=== PATIENT | male | born 1985 | race Caucasian/White ===

== ENCOUNTER → 2021-01-24 | Outpatient (CLI) | payer OTHER ==
--- NOTE | 2021-01-24 11:49 | KCIC ---
Site ID: [id number] EXAMINATION: XR CHEST 2V. HISTORY: 35 years Male Reason: SOA on exertion. COMPARISON: None. Findings: The lungs are clear. The heart size is normal. There is no effusion or pneumothorax. The mediastinum and darin appear unremarkable. Impression: Unremarkable study. Electronically signed by: Benito Marcus MD (01/24/2021 11:47 AM) [id number]
--- NOTE | 2021-01-24 14:08 | KCIC ---
EXAM: AP, lateral and lumbosacral spot views with bilateral oblique views of the lumbar spine DATE: 01/24/2021 10:02 AM INDICATION: Low back pain COMPARISON: No Prior FINDINGS: 5 nonrib-bearing lumbar type to bodies. Vertebral body heights are preserved. Mild facet degenerative changes. No spondylolisthesis. No acute fracture. On the oblique views no definite pars defects are seen. IMPRESSION: No acute fracture or subluxation. Electronically signed by: Jani Mclean MD (01/24/2021 2:05 PM) RICCO
== END ==
LOC: KCIC 10:00
PROVIDERS: ATTEND Family Medicine
DX: R06.02 Shortness of breath (principal); M47.816 Spondylosis without myelopathy or radiculopathy, lumbar region
CPT/HCPCS: 71046; 72110